=== PATIENT | female | born 1990 | race Hispanic/Latino ===

== ENCOUNTER 2017-06-15 13:22 | Emergency (ER) | payer OTHER ==
[2017-06-15 13:31] VITALS: TEMP 98; O2SAT 99
--- NOTE | 2017-06-15 14:42 | ED PDOC ---
HPI: Chest Pain Time Seen by Provider: 06/15/17 13:39 Chief Complaint (Nursing): Chest Pain Chief Complaint (Provider): Chest Pain History Per: Patient History/Exam Limitations: no limitations Onset/Duration Of Symptoms: Days (x4) Current Symptoms Are (Timing): Still Present Additional Complaint(s): Mery Patterson is a 26 year old female who presents to the emergency department with a complaint of constant left-sided chest pain exasperated by deep breathing and lying down ongoing for 4 days. Denied radiation of pain or worsening on exertion. No association with cough, difficulty breathing, legs swelling, fever, chills, sweats, dizziness or syncope. 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 She had an appointment today but did not go to get checked up. Patient stated she has been taking Aspirin for pain relief. PMD: none provided Past Medical History Reviewed: Historical Data, Nursing Documentation, Vital Signs Vital Signs: Last Vital Signs Temp 98.0 F 06/15/17 13:30 Pulse 88 06/15/17 13:30 Resp 20 06/15/17 13:30 BP 142/95 H 06/15/17 13:30 Pulse Ox 99 06/15/17 17:29 - Medical History PMH: No Chronic Diseases - Surgical History Surgical History: No Surg Hx - Family History Family History: States: No Known Family Hx - Home Medications Home Medications: Ambulatory Orders Medication Instructions Recorded Naproxen 500 mg PO BID #20 tab 06/15/17 oxyCODONE/Acetaminophen [Percocet 1 ea PO Q6 PRN #12 tab 06/15/17 5/325 mg Tab] - Allergies Allergies/Adverse Reactions: Allergies Allergy/AdvReac Type Severity Reaction Status Date / Time No Known Allergies Allergy Verified 06/15/17 13:25 WILY Risk Score for UA/NSTEMI - WILY Risk Score Age > 64: NO 3 or more CAD Risk Factors: NO Known CAD (Stenosis greater than 50%): NO Aspirin use in past 7 days: NO Severe Angina: NO EKG ST changes greater than 0.5mm: NO Positive Cardiac Marker: NO WILY Score: 0 Risk %: 5% Wells Criteria for PE - Wells Criteria for Pulmonary Embolism Clinical Signs and Symptoms of DVT: No P.E is #1 Diagnosis, or Equally Likely: Yes Heart Rate >100: No Immobilization at least 3 days;Surgery previous 4 weeks: No Previous, objectively diagnosed PE or DVT: No Hemoptysis: No Malignancy w/treatment within 6 months, or palliative: No Total Score: 1 Review of Systems ROS Statement: Except As Marked, All Systems Reviewed And Found Negative Constitutional: Negative for: Fever, Chills, Sweats Cardiovascular: Positive for: Chest Pain (left-sided) Respiratory: Negative for: Cough, Shortness of Breath Musculoskeletal: Negative for: Leg Pain (or swelling) Neurological: Negative for: Dizziness (or syncope) Physical Exam - Reviewed Nursing Documentation Reviewed: Yes Vital Signs Reviewed: Yes - Physical Exam Appears: Positive for: Well, Non-toxic, No Acute Distress Head Exam: Positive for: ATRAUMATIC, NORMAL INSPECTION, NORMOCEPHALIC Skin: Positive for: Normal Color Eye Exam: Positive for: Normal appearance, EOMI, PERRL. Negative for: Nystagmus ENT: Positive for: Normal ENT Inspection Neck: Positive for: Normal, Painless ROM, Supple. Negative for: Decreased ROM Cardiovascular/Chest: Positive for: Regular Rate, Rhythm, Chest Non Tender Respiratory: Positive for: Normal Breath Sounds, Accessory Muscle Use. Negative for: Decreased Breath Sounds, Crackles, Rales, Rhonchi, Wheezing, Respiratory Distress Gastrointestinal/Abdominal: Positive for: Normal Exam, Soft. Negative for: Tenderness Back: Positive for: Normal Inspection. Negative for: L CVA Tenderness, R CVA Tenderness Extremity: Positive for: Normal ROM, Deformity. Negative for: Tenderness, Pedal Edema, Calf Tenderness Neurologic/Psych: Positive for: Alert (x3), Oriented, Mood/Affect (anxious) - Laboratory Results Result Diagrams: 06/15/17 14:35 06/15/17 14:35 - ECG O2 Sat by Pulse Oximetry: 99 (RA) Pulse Ox Interpretation: Normal - Progress Re-evaluation Time: 17:43 Condition: Re-examined, Improved Medical Decision Making Medical Decision Making: Initial Impression: Chest pain Differential Diagnosis: Pulmonary embolism; ACS; pericarditis; musculoskeletal pain Initial Plan: * CTA Chest * EKG * BMP * Troponin I * CBC * PTT * PT * Toradol --EKG: NSR at 67 BMP. Normal QRS with no ST changes. Time: 16:59 CT Chest Angio: FINDINGS: PULMONARY ARTERIES: There are no filling defects in the pulmonary arteries to suggest acute pulmonary embolism. AORTA: No aortic dissection. No thoracic aortic aneurysm. LUNGS: The lungs are well inflated and clear. No nodule, mass or pulmonary consolidation. There is minimal linear atelectasis in the right anterior lung base and subsegmental atelectasis in the left posterior lung base. There are no endobronchial lesions. PLEURAL SPACES: No effusion or pneumothorax. HEART: The heart is normal in size. There is no pericardial effusion. LYMPH NODES: No pathologic mediastinal or hilar lymphadenopathy. BONES, CHEST WALL: Within normal limits for the patient's age. No fracture or destructive lesion OTHER FINDINGS: Unremarkable. IMPRESSION: No CTA evidence for acute pulmonary embolism. No pneumothorax, acute rib fracture or consolidation. Scribe Attestation: Documented by Linda Monterroso & Brenda Ring, acting as a scribe for Booker Rain MD. Provider Scribe Attestation: All medical record entries made by the Scribe were at my direction and personally dictated by me. I have reviewed the chart and agree that the record accurately reflects my personal performance of the history, physical exam, medical decision making, and the department course for this patient. I have also personally directed, reviewed, and agree with the discharge instructions and disposition. Disposition - Clinical Impression Clinical Impression: Chest pain - Patient ED Disposition Is Patient to be Admitted: No Doctor Will See Patient In The: Office Counseled Patient/Family Regarding: Studies Performed, Diagnosis, Need For Followup - Disposition Referrals: [facility] [Outside] Disposition: Routine/Home Disposition Time: 17:44 Condition: GOOD Additional Instructions: Take your medications as instructed. Follow up with your PCP in 2-3 days. Prescriptions: Naproxen 500 mg PO BID #20 tab oxyCODONE/Acetaminophen [Percocet 5/325 mg Tab] 1 ea PO Q6 PRN #12 tab PRN Reason: Pain, Severe (8-10) Instructions: Chest Pain (ED) Forms: [facility] (Mongolian)
[2017-06-15 14:45] LABS: BASO % 0.5 % (0.0-2.0); EOS # 0.1 K/uL (0.0-0.7); EOS % 1.7 % (0.0-4.0); HEMATOCRIT 39.3 % (34.0-47.0); LYMPH # 1.2 K/uL (1.0-4.3); LYMPH % 17.5 % (20.0-40.0); MEAN CELL VOLUME 86.5 fl (81.0-99.0); MEAN CORPUSCULAR HEMOGLOBIN 29.5 pg (27.0-31.0); MEAN CORPUSCULAR HGB CONC 34.2 g/dL (33.0-37.0); MEAN PLATELET VOLUME 7.8 fl (7.2-11.7); MONO # 0.6 K/uL (0.0-0.8); MONO % 8.7 % (0.0-10.0); NEUT % 71.6 % (50.0-75.0); RED CELL DISTRIBUTION WIDTH 13.7 % (11.5-14.5)
[2017-06-15 14:56] LABS: PARTIAL THROMBOPLASTIN TIME 30.5 Seconds (25.6-37.1)
[2017-06-15 14:57] LABS: BLOOD UREA NITROGEN 14 mg/dl (7-17); CALCIUM 9.1 mg/dL (8.4-10.2); CARBON DIOXIDE 25 mmol/L (22-30); CHLORIDE 104 mmol/L (98-107); GFR AFRICAN-AMERICAN > 60; GLUCOSE,RANDOM 105 mg/dL (65-105); POTASSIUM 4.8 MMOL/L (3.6-5.0); SODIUM 140 mmol/l (132-148)
[2017-06-15] MEDS ORDERED: Oxycodone/Acetaminophen 5/325 mg Tab PO ONE (15:13)
[2017-06-15] MEDS ORDERED: Iodixanol 320 MG/ML 100 ML BOTTLE IV ONE (15:32)
[2017-06-15] MEDS ORDERED: Sodium Chloride 0.9% 50 ML IV ONE (15:32)
--- NOTE | 2017-06-15 17:01 | CT ---
PROCEDURE: CT Chest with contrast (Pulmonary Angiogram) HISTORY: Chest pain COMPARISON: None available. TECHNIQUE: Axial computed tomography images were obtained of the chest in the pulmonary arterial phase of enhancement. Coronal and sagittal reformatted images were created and reviewed. Intravenous contrast dose: 80 mL Visipaque 320 Radiation dose: Total exam DLP = 249.20 mGy-cm. This CT exam was performed using one or more of the following dose reduction techniques: Automated exposure control, adjustment of the mA and/or kV according to patient size, and/or use of iterative reconstruction technique. FINDINGS: PULMONARY ARTERIES: There are no filling defects in the pulmonary arteries to suggest acute pulmonary embolism. AORTA: No aortic dissection. No thoracic aortic aneurysm. LUNGS: The lungs are well inflated and clear. No nodule, mass or pulmonary consolidation. There is minimal linear atelectasis in the right anterior lung base and subsegmental atelectasis in the left posterior lung base. There are no endobronchial lesions. PLEURAL SPACES: No effusion or pneumothorax. HEART: The heart is normal in size. There is no pericardial effusion. LYMPH NODES: No pathologic mediastinal or hilar lymphadenopathy. BONES, CHEST WALL: Within normal limits for the patient's age. No fracture or destructive lesion OTHER FINDINGS: Unremarkable. IMPRESSION: No CTA evidence for acute pulmonary embolism. No pneumothorax, acute rib fracture or consolidation.
[2017-06-15 18:51] VITALS: BP 126/75; PULSE 82; RESP 14
--- NOTE | 2017-06-17 17:54 | CARD ---
APPROVED REPORT EKG Measurement Heart [id number] <Conclusion> Normal sinus rhythm Junctional ST depression, probably abnormal Abnormal ECG
== END 2017-06-15 18:47 | disposition home or self-care (01) ==
LOC: H.ER 13:22
DX: R07.89 Other chest pain (principal)
CPT/HCPCS: 71275; 80048; 81025; 84484; 85025; 85610; 85730; 93005; 96374; 99285; J1885; Q9967